=== PATIENT | female | born 1995 | race Caucasian/White ===

== ENCOUNTER 2017-07-30 20:47 | Emergency (ER) | payer MEDICAID ==
[~2017-07-30] VITALS: Ht 165.1 cm; Wt 52.0 kg
[~2017-07-30 20:47] MED LIST: ACET325T14 PO; CALC200T3 PO; DOCU-131 PO; IBUP-1223 PO; MAGN400O7 PO; OXYC-302 PO; PREN-2 PO
[2017-07-30 21:34] LABS: HEMATOCRIT 48.1 % (34.6-47.8); HEMOGLOBIN 15.9 g/dL (11.7-16.4); WHITE BLOOD COUNT 6.7 x10^3/uL (3.4-10)
[2017-07-30 21:47] LABS: BLOOD UREA NITROGEN 12 mg/dL (7-18)
[2017-07-30 21:53] LABS: ASPARTATE AMINO TRANSFERASE 37 U/L (15-37)
[2017-07-30 22:08] VITALS: BP 117/71
== END 2017-07-30 23:11 | disposition home or self-care (01) ==
LOC: ED 22:49
DX: N30.00 Acute cystitis without hematuria (principal)
CPT/HCPCS: 36415; 80053; 81001; 83690; 84703; 85025; 87077; 87086; 87186; 99284

== ENCOUNTER 2018-03-04 00:20 | Emergency (ER) | payer SELFPAY ==
[~2018-03-04] VITALS: Ht 165.1 cm; Wt 49.7 kg
[2018-03-04 00:27] VITALS: BP 107/73
[2018-03-04 00:57] LABS: BASOPHILS # (AUTO) 0.04 x10^3/uL (0-0.1); BASOPHILS % (AUTO) 0 % (0-1); EOSINOPHILS # (AUTO) 0.13 x10^3/uL (0-0.4); EOSINOPHILS % (AUTO) 1 % (1-7); LYMPHOCYTES # (AUTO) 2.08 x10^3/uL (1-3.4); LYMPHOCYTES % (AUTO) 19 % (22-44); MD NO; MEAN CORPUSCULAR HEMOGLOBIN 29.2 pg (27.0-34.8); MEAN CORPUSCULAR HGB CONC 33.6 g/dL (32.4-35.8); MEAN PLATELET VOLUME 8.4 fL (7.4-10.4); MONOCYTES # (AUTO) 0.58 x10^3/uL (0.2-0.8); MONOCYTES % (AUTO) 5 % (2-9); NEUTROPHILS # (AUTO) 8.26 x10^3/uL (1.8-6.8); NEUTROPHILS % (AUTO) 75 % (42-75); PLATELET COUNT 221 x10^3/uL (130-400); RED BLOOD COUNT 4.26 x10^6/uL (3.82-5.3)
[2018-03-04 01:06] LABS: ANION GAP 6 mmol/L (5-15); CALCIUM 8.4 mg/dL (8.5-10.1); CHLORIDE 109 mmol/L (98-107); CREATININE 0.66 mg/dL (0.55-1.02)
[2018-03-04 01:56] LABS: CULTURE INDICATED? YES; MICROSCOPIC INDICATED
== END 2018-03-04 04:01 | disposition home or self-care (01) ==
LOC: ED 00:46
DX: O03.38 Urinary tract infection following incomplete spontaneous abortion (principal); O99.331 Smoking (tobacco) complicating pregnancy, first trimester; O20.0 Threatened abortion; Z3A.08 8 weeks gestation of pregnancy; R82.99 Other abnormal findings in urine
CPT/HCPCS: 36415; 76801; 80048; 81001; 82040; 84702; 85025; 86901; 87086; 99285

== ENCOUNTER 2021-02-06 10:03 | Outpatient (CLI) | payer MEDICAID ==
[~2021-02-06] VITALS: Ht 167.6 cm; Wt 66.8 kg
[~2021-02-06 10:03] MED LIST changes: -OXYC-302 PO; +OXYC1TAB14 PO
[2021-02-06 10:26] LABS: MICROSCOPIC INDICATED
[2021-02-06 10:34] LABS: AMPHETAMINE SCREEN, URINE Negative (Negative); BARBITURATE SCREEN, URINE Negative (Negative); BENZODIAZEPINE SCREEN, URINE Negative (Negative); CANNABINOID SCREEN, URINE Negative (Negative); COCAINE SCREEN, URINE Negative (Negative); METHADONE SCREEN, URINE Negative (Negative); OPIATE SCREEN, URINE Negative (Negative)
== END 2021-02-06 11:00 | disposition home or self-care (01) ==
LOC: LDOP 10:03
PROVIDERS: ATTEND Obstetrics & Gynecology
DX: O26.893 Other specified pregnancy related conditions, third trimester (principal); R10.9 Unspecified abdominal pain; Z3A.35 35 weeks gestation of pregnancy
CPT/HCPCS: 59025; 80307; 81001; 87086

== ENCOUNTER 2021-02-24 21:11 | Outpatient (CLI) | payer MEDICAID ==
[2021-02-24 21:24] VITALS: BP 117/80
[2021-02-24 22:14] LABS: MICROSCOPIC INDICATED
[2021-02-24 22:15] LABS: AMPHETAMINE SCREEN, URINE Negative (Negative); BARBITURATE SCREEN, URINE Negative (Negative); BENZODIAZEPINE SCREEN, URINE Negative (Negative); CANNABINOID SCREEN, URINE Negative (Negative); COCAINE SCREEN, URINE Negative (Negative); METHADONE SCREEN, URINE Negative (Negative); OPIATE SCREEN, URINE Negative (Negative)
== END 2021-02-24 23:00 | disposition home or self-care (01) ==
LOC: LDOP 21:11
PROVIDERS: ATTEND Obstetrics & Gynecology
DX: O42.92 Full-term premature rupture of membranes, unspecified as to length of time between rupture and onset of labor (principal); Z3A.38 38 weeks gestation of pregnancy
CPT/HCPCS: 59025; 80307; 81001; 84112; 87086; 89060; Q0114

== ENCOUNTER 2021-03-06 12:34 | Inpatient (IN) | payer MEDICAID ==
[~2021-03-06] VITALS: Ht 167.6 cm; Wt 70.9 kg
[2021-03-07 08:15] VITALS: BP 134/90
[2021-03-07] MEDS ORDERED: METOCLOPRAMIDE 5 MG/ML, 2ML IVPush PRN (09:00)
[2021-03-07] MEDS ORDERED: PLEASE ENTER HEIGHT AND WEIGHT MC SCH (09:00)
[2021-03-07] MEDS ORDERED: SODIUM CITRATE/CITRIC ACID 30 ML UDC PO PRN (09:00)
[2021-03-07] MEDS ORDERED: OXYTOCIN 30U/ 0.9% NaCL 500ML 500 ML IV PRN (09:00)
[2021-03-07] MEDS ORDERED: CALCIUM CARBONATE 500 MG TAB.CHEW PO PRN (09:00)
[2021-03-07] MEDS ORDERED: TERBUTALINE 1 MG/ML, 1ML IVPush PRN (09:00)
[2021-03-07] MEDS ORDERED: ONDANSETRON 2MG/ML, 2ML IVPush PRN (09:00)
[2021-03-07] MEDS ORDERED: FENTANYL PF 100 MCG/2ML IVPush PRN (09:00)
[2021-03-07] MEDS ORDERED: OXYTOCIN 30U/ 0.9% NaCL 500ML 500 ML IV ONE (09:00)
[2021-03-07] MEDS ORDERED: FENTANYL PF 100 MCG/2ML IV PRN (09:00)
[2021-03-07] MEDS ORDERED: LACTATED RINGERS 1,000 ML IV SCH ×2 (09:00→10:30)
[2021-03-07] MEDS ORDERED: TERBUTALINE 1 MG/ML, 1ML SQ PRN (09:00)
[2021-03-07] MEDS ORDERED: D5%-LACTATED RINGERS 1,000 ML IV SCH (09:00)
[2021-03-07 09:31] LABS: BASOPHILS % (AUTO) 0 % (0-1); EOSINOPHILS % (AUTO) 1 % (1-7); LYMPHOCYTES % (AUTO) 15 % (22-44); MEAN CORPUSCULAR HEMOGLOBIN 31.9 pg (27.0-34.8); MEAN PLATELET VOLUME 10.9 fL (7.4-10.4); MONOCYTES % (AUTO) 7 % (2-9); NEUTROPHILS % (AUTO) 77 % (42-75); PLATELET COUNT 124 x10^3/uL (130-400); RED BLOOD COUNT 4.02 x10^6/uL (3.82-5.3); RED CELL DISTRIBUTION WIDTH 12.7 % (9.6-15.2)
[2021-03-07 09:32] LABS: MD NO
[2021-03-07 09:48] LABS: AMPHETAMINE SCREEN, URINE Negative (Negative); BARBITURATE SCREEN, URINE Negative (Negative); BENZODIAZEPINE SCREEN, URINE Negative (Negative); CANNABINOID SCREEN, URINE Negative (Negative); COCAINE SCREEN, URINE Negative (Negative); METHADONE SCREEN, URINE Negative (Negative); OPIATE SCREEN, URINE Negative (Negative)
[2021-03-07] MEDS ORDERED: MISOPROSTOL 200 MCG TABLET ONE (09:54)
[2021-03-07] MEDS ORDERED: LIDOCAINE 1%, 20ML ONE (09:54)
[2021-03-07] MEDS ORDERED: NEWBORN KIT ONE (09:54)
[2021-03-07] MEDS ORDERED: NALOXONE 0.4 MG/ML, 1ML IVPush PRN (10:30)
[2021-03-07] MEDS ORDERED: FENTANYL/BUPIV./NS/PF 250 ML EPIDCONT SCH (10:30)
[2021-03-07] MEDS ORDERED: EPHEDRINE 50 MG/ML, 1ML IVPush PRN (10:30)
[2021-03-07] MEDS ORDERED: LACTATED RINGERS 1,000 ML IVBOLUS PRN (10:30)
[2021-03-07] MEDS ORDERED: BUPIVACAINE 0.25% ONE (15:20)
[2021-03-08] MEDS ORDERED: OXYTOCIN 10 UNITS/ML, 1ML IM PRN (00:30)
[2021-03-08] MEDS ORDERED: CARBOPROST TROMETHAMINE 250 MCG/ML, 1ML IM PRN (00:30)
[2021-03-08] MEDS ORDERED: OXYcodone/APAP 5/325MG TABLET PO PRN (00:30)
[2021-03-08] MEDS ORDERED: ACETAMINOPHEN 325 MG TABLET PO PRN (00:30)
[2021-03-08] MEDS ORDERED: METHYLERGONOVINE 0.2 MG/ML IM PRN (00:30)
[2021-03-08] MEDS ORDERED: OXYTOCIN 30U/ 0.9% NaCL 500ML 500 ML IV SCH (00:30)
[2021-03-08] MEDS ORDERED: ONDANSETRON 2MG/ML, 2ML IV PRN (00:30)
[2021-03-08] MEDS ORDERED: OXYcodone IR 5MG TABLET PO PRN (00:30)
[2021-03-08] MEDS ORDERED: MAGNESIUM HYDROXIDE 8%, 30ML UDC PO PRN (00:30)
[2021-03-08] MEDS ORDERED: SIMETHICONE 80 MG CHEW TAB PO PRN (00:30)
[2021-03-08 02:45] VITALS: BP 98/65
[2021-03-08] MEDS: IBUPROFEN 800 MG TABLET PO PRN ×2 (02:45→12:50)
[2021-03-08] MEDS: DOCUSATE 100 MG CAPSULE PO PRN (07:22)
[2021-03-08] MEDS: PRENATAL VIT/IRON/FA 1 EACH TABLET PO SCH (07:22)
[2021-03-08] MEDS: ACETAMINOPHEN 325 MG TABLET PO PRN ×3 (07:24→16:43)
[2021-03-08] MEDS: BUPRENORPHINE/NALOXONE 2-0.5MG SL SCH (07:24)
[2021-03-08 07:45] VITALS: BP 107/54
[2021-03-08 07:59] LABS: BASOPHILS % (AUTO) 0 % (0-1); EOSINOPHILS % (AUTO) 1 % (1-7); LYMPHOCYTES % (AUTO) 12 % (22-44); MEAN CORPUSCULAR HEMOGLOBIN 31.6 pg (27.0-34.8); MEAN CORPUSCULAR HGB CONC 33.5 g/dL (32.4-35.8); MEAN PLATELET VOLUME 10.9 fL (7.4-10.4); MONOCYTES % (AUTO) 6 % (2-9); NEUTROPHILS % (AUTO) 81 % (42-75); PLATELET COUNT 121 x10^3/uL (130-400); RED BLOOD COUNT 4.01 x10^6/uL (3.82-5.3); RED CELL DISTRIBUTION WIDTH 12.7 % (9.6-15.2)
[2021-03-08 08:00] LABS: MD NO
[2021-03-08] MEDS ORDERED: BUPRENORPHINE/NALOXONE 2-0.5MG SL SCH (09:00)
[2021-03-08 15:50] VITALS: BP 103/67
[2021-03-08 20:00] VITALS: BP 109/61
[2021-03-09 07:20] VITALS: BP 99/64
[2021-03-09] MEDS: ACETAMINOPHEN 325 MG TABLET PO PRN ×2 (08:02→12:21)
[2021-03-09] MEDS: DOCUSATE 100 MG CAPSULE PO PRN (08:02)
[2021-03-09] MEDS: PRENATAL VIT/IRON/FA 1 EACH TABLET PO SCH (08:02)
[2021-03-09] MEDS: IBUPROFEN 800 MG TABLET PO PRN ×2 (08:02→16:40)
[2021-03-09] MEDS: BUPRENORPHINE/NALOXONE 2-0.5MG SL SCH (08:04)
[2021-03-09] MEDS ORDERED: NICOTINE 7 MG/24 HR PATCH.TD24 TD SCH (12:00)
[2021-03-09] MEDS ORDERED: IBUP-1223 PO (13:15)
[2021-03-09] MEDS ORDERED: PREN1TAB98 PO (13:15)
[2021-03-09] MEDS ORDERED: ACET325T26 PO ×2 (13:16→13:17)
[2021-03-09] MEDS ORDERED: CALC500T29 PO (13:17)
[2021-03-09] MEDS ORDERED: DOCU100C33 PO (13:18)
[2021-03-09] MEDS ORDERED: MAGN400O7 PO (13:20)
[2021-03-09] MEDS ORDERED: SIME80TA15 PO (13:21)
== END 2021-03-09 18:30 | disposition home or self-care (01) | DRG 807 ==
LOC: LDIP 03-07 08:17 → 2NW 03-08 02:41
PROVIDERS: ADMIT Obstetrics & Gynecology; ATTEND Obstetrics & Gynecology
PROC: 10E0XZZ Delivery of Products of Conception, External Approach (ICD-10-PCS; principal; 2021-03-08)
PROC: 3E033VJ Introduction of Other Hormone into Peripheral Vein, Percutaneous Approach (ICD-10-PCS; 2021-03-08)
PROC: 3E0R3BZ Introduction of Anesthetic Agent into Spinal Canal, Percutaneous Approach (ICD-10-PCS; 2021-03-08)
PROC: 00HU33Z Insertion of Infusion Device into Spinal Canal, Percutaneous Approach (ICD-10-PCS; 2021-03-08)
DX: O99.334 Smoking (tobacco) complicating childbirth (principal); Z37.0 Single live birth; F17.210 Nicotine dependence, cigarettes, uncomplicated; Z3A.39 39 weeks gestation of pregnancy; Z20.822 Contact with and (suspected) exposure to COVID-19
CPT/HCPCS: 36415; J0572; 80307; 85025; 86592; 86850; 86900; 87635; G0378; J2590; J7120